=== PATIENT | female | born 1950 | race Caucasian/White ===

== ENCOUNTER 2021-12-18 15:44 | Emergency (ER) | payer OTHER ==
[~2021-12-18] VITALS: Ht 165.1 cm; Wt 81.6 kg
[2021-12-18 16:34] VITALS: BP 172/80
[2021-12-18] MEDS ORDERED: IBUP-1955 PO (18:47)
--- NOTE | 2021-12-18 18:53 | NUR ---
Patient discharged to home in stable condition. Written and verbal after care instructions given. Patient verbalizes understanding of instruction.
== END 2021-12-18 18:53 | disposition home or self-care (01) ==
LOC: ER 15:50
DX: S16.1XXA Strain of muscle, fascia and tendon at neck level, initial encounter (principal); M50.30 Other cervical disc degeneration, unspecified cervical region; I10 Essential (primary) hypertension; X58.XXXA Exposure to other specified factors, initial encounter; Y93.89 Activity, other specified; Y92.89 Other specified places as the place of occurrence of the external cause; Y99.8 Other external cause status
CPT/HCPCS: 72125-TC